=== PATIENT | male | born 1970 | race Caucasian/White ===

== ENCOUNTER 2020-03-28 08:37 | Outpatient (REF) | payer OTHER, SELFPAY | END 2020-03-28 08:38 | disposition home or self-care (01) | LOC: HO.WFDLDS 08:37 | PROVIDERS: PCP Internal Medicine; Visit Provider Internal Medicine | DX: Z20.822 Contact with and (suspected) exposure to COVID-19 (principal) | CPT/HCPCS: 36415; C9803; U0003 ==